=== PATIENT | male | born 1955 | race Caucasian/White ===

== ENCOUNTER 2021-03-04 14:02 | Emergency (ER) | payer OTHER ==
[~2021-03-04] VITALS: Ht 172.7 cm; Wt 61.7 kg
[2021-03-04 14:50] VITALS: BP_SYST 134; BP_SYST 143; BP_DIAS 77; BP_DIAS 80
[2021-03-04] MEDS ORDERED: KETOROLAC 30 MG/ML VIAL IM ONE (15:40)
--- NOTE | 2021-03-04 17:18 | NUR ---
Patient discharged with v/s stable. Written and verbal after care instructions given C[employer] [employer] [facility] and explained. Patient verbalized understanding. Ambulatory with steady gait. All questions addressed prior to discharge. Advised to follow up with PMD.
--- NOTE | 2021-03-04 18:06 | NUR ---
NO NURSING INTERVENTIONS DONE NO COMPLETE NEEDED.
== END 2021-03-04 17:18 | disposition home or self-care (01) ==
LOC: MED 14:02
DX: S16.1XXA Strain of muscle, fascia and tendon at neck level, initial encounter (principal); I10 Essential (primary) hypertension; V98.8XXA Other specified transport accidents, initial encounter; Y93.89 Activity, other specified; Y92.89 Other specified places as the place of occurrence of the external cause; Y99.8 Other external cause status
CPT/HCPCS: 72050; 96372; 99283; J1885